=== PATIENT | female | born 1990 | race Caucasian/White ===

== ENCOUNTER 2018-08-05 15:58 | Outpatient (CLI) | payer OTHER | END 2018-08-05 17:20 | disposition home or self-care (01) | LOC: OBT 15:58 → L-D 15:59 → OBT 17:20 | DX: O26.892 Other specified pregnancy related conditions, second trimester (principal); R55 Syncope and collapse; Z3A.21 21 weeks gestation of pregnancy | CPT/HCPCS: 76818 ==

== ENCOUNTER 2018-08-05 17:29 | Emergency (ER) | payer SELFPAY, OTHER | END 2018-08-05 20:05 | disposition left against medical advice (07) | LOC: FTE 17:29 | DX: Z53.21 Procedure and treatment not carried out due to patient leaving prior to being seen by health care provider (principal) ==

== ENCOUNTER 2018-12-09 00:14 | Outpatient (CLI) | payer OTHER | END 2018-12-09 02:06 | disposition home or self-care (01) | LOC: OBT 00:14 → L-D 00:15 → OBT 02:06 | DX: O62.9 Abnormality of forces of labor, unspecified (principal); Z3A.38 38 weeks gestation of pregnancy | CPT/HCPCS: 76818 ==

== ENCOUNTER 2018-12-13 17:48 | Inpatient (IN) | payer OTHER ==
[2018-12-13] MEDS ORDERED: IBUPROFEN 600 MG TAB PO (18:30)
[2018-12-13] MEDS ORDERED: MISOPROSTOL 200 MCG TAB PR (18:30)
[2018-12-13] MEDS ORDERED: CARBOPROST 250 MCG INJ IM (18:30)
[2018-12-13] MEDS ORDERED: BUTORPHANOL 2 MG INJ IV (18:30)
[2018-12-13] MEDS ORDERED: LIDOCAINE 1% (MPF) 30 ML INJ INJ (18:30)
[2018-12-13] MEDS ORDERED: METHYLERGONOVINE 0.2 MG INJ IM (18:30)
[2018-12-13] MEDS ORDERED: OXYTOCIN 30 UNITS/LR 500 ML IV (18:30)
[2018-12-13] MEDS: LACTATED RINGER'S 1,000 ML IV (20:44)
[2018-12-13 21:03] LABS: ADD MAN DIFF? NO
[2018-12-13 21:07] LABS: WHITE BLOOD COUNT 7.4 10^3/ul (4.8-10.8)
[2018-12-13 21:07] LABS: BASOPHILS % 0.4 % (0.0-2.0); EOSINOPHILS # 0.1 10^3/ul (0.0-0.5); EOSINOPHILS % 1.8 % (0.0-7.0); HEMOGLOBIN 12.7 g/dl (12.0-16.0); LYMPHOCYTES # 2.5 10^3/ul (0.8-2.9); LYMPHOCYTES % 33.2 % (15.0-51.0); MEAN CORPUSCULAR HEMOGLOBIN 27.3 pg (29.0-33.0); MEAN CORPUSCULAR HGB CONC 33.4 g/dl (32.0-37.0); MEAN CORPUSCULAR VOLUME 81.7 fl (82.0-101.0); MONOCYTE # 0.6 10^3/ul (0.3-0.9); MONOCYTES % 8.4 % (0.0-11.0); NEUTROPHIL # 4.1 10^3/ul (1.6-7.5); NEUTROPHILS % 55.9 % (39.0-77.0); PLATELET COUNT 266 10^3/UL (140-415); RED BLOOD COUNT 4.65 10^6/ul (4.20-5.40); RED CELL DISTRIBUTION WIDTH 15.3 % (11.5-14.5)
[2018-12-13] MEDS: AMPICILLIN 2 GM/NS (PMX) 100 ML IV (21:07)
[2018-12-13 21:28] LABS: INR 0.85; PARTIAL THROMBOPLASTIN TIME 30.3 Sec (23.0-35.0); PROTIME 11.7 Sec (11.9-14.9); PT RATIO 0.9
[2018-12-13 22:02] LABS: HEPATITIS B SURFACE ANTIGEN NEGATIVE (NEGATIVE)
[2018-12-14] MEDS: OXYTOCIN 30 UNITS/LR 500 ML IV ×5 (00:06→14:01)
[2018-12-14] MEDS: AMPICILLIN 1 GM/NS (PMX) 50 ML IV ×4 (01:21→10:30)
[2018-12-14] MEDS: LACTATED RINGER'S 1,000 ML IV ×2 (05:06→10:24)
[2018-12-14] MEDS: OXYCODONE/ASPIRIN (4.88/325) TAB PO (09:52)
[2018-12-14] MEDS: LACTATED RINGER'S 1,000 ML IV* ×2 (10:53→22:52)
[2018-12-14] MEDS ORDERED: ACETAMINOPHEN 325 MG TAB PO (11:00)
[2018-12-14] MEDS ORDERED: OXYTOCIN 30 UNITS/LR 500 ML IV (11:00)
[2018-12-14] MEDS ORDERED: HYDROCODONE/APAP (5/325) TAB PO (11:00)
[2018-12-14] MEDS ORDERED: MAGNESIUM HYDROXIDE 30ML CUP PO (11:00)
[2018-12-14] MEDS ORDERED: CARBOPROST 250 MCG INJ IM (11:00)
[2018-12-14] MEDS ORDERED: METHYLERGONOVINE 0.2 MG INJ IM (11:00)
[2018-12-14] MEDS ORDERED: ZOLPIDEM 5 MG TAB PO (11:00)
[2018-12-14] MEDS ORDERED: MISOPROSTOL 200 MCG TAB PR (11:00)
[2018-12-14] MEDS ORDERED: DIPHENHYDRAMINE 25 MG CAP PO (11:00)
[2018-12-14] MEDS: IBUPROFEN 800 MG TAB PO ×3 (12:29→23:36)
[2018-12-14] MEDS: WITCH HAZEL/GLYCERIN PAD PR (12:30)
[2018-12-14] MEDS: BENZOCAINE 20% 56 ML SPRAY TOP (12:30)
[2018-12-14] MEDS: LANOLIN HPA 1 PKT TOP (12:30)
[2018-12-14 15:06] LABS: RAPID PLASMA REAGIN NONREACTIVE (NR)
[2018-12-14] MEDS: SENNA/DOCUSATE NA (8.6MG/50MG) TAB PO (23:36)
[2018-12-15] MEDS: LACTATED RINGER'S 1,000 ML IV* (03:57)
[2018-12-15] MEDS: IBUPROFEN 800 MG TAB PO ×2 (05:58→11:51)
[2018-12-15 08:15] LABS: ADD MAN DIFF? NO
[2018-12-15 08:20] LABS: BASOPHILS % 0.4 % (0.0-2.0); EOSINOPHILS # 0.3 10^3/ul (0.0-0.5); EOSINOPHILS % 2.8 % (0.0-7.0); HEMATOCRIT 32.7 % (37.0-47.0); HEMOGLOBIN 10.9 g/dl (12.0-16.0); LYMPHOCYTES % 33.6 % (15.0-51.0); MEAN CORPUSCULAR HEMOGLOBIN 27.2 pg (29.0-33.0); MEAN CORPUSCULAR HGB CONC 33.3 g/dl (32.0-37.0); MEAN CORPUSCULAR VOLUME 81.5 fl (82.0-101.0); MEAN PLATELET VOLUME 11.3 fl (7.4-10.4); MONOCYTE # 0.6 10^3/ul (0.3-0.9); MONOCYTES % 6.3 % (0.0-11.0); NEUTROPHIL # 5.1 10^3/ul (1.6-7.5); NEUTROPHILS % 56.7 % (39.0-77.0); PLATELET COUNT 235 10^3/UL (140-415); RED BLOOD COUNT 4.01 10^6/ul (4.20-5.40); RED CELL DISTRIBUTION WIDTH 15.4 % (11.5-14.5)
[2018-12-15] MEDS: SENNA/DOCUSATE NA (8.6MG/50MG) TAB PO (09:20)
[2018-12-15] MEDS: MEASLES,MUMPS,RUBELLA VACCINE INJ SC* (13:52)
[2018-12-15] MEDS: VARICELLA VACCINE LIVE/PF 1,350 UNIT/0.5 ML ML SC* (13:53)
[2018-12-15] MEDS: DIPHTH/TET/ACEL PERTUSS (ADULT) 0.5 ML VIAL IM* (14:10)
== END 2018-12-15 15:00 | disposition home or self-care (01) | DRG 807 ==
LOC: OBT 17:48 → L-D 17:51 → PP1 12-14 10:36
PROVIDERS: Obstetrics & Gynecology
PROC: 10E0XZZ Delivery of Products of Conception, External Approach (ICD-10-PCS; principal; 2018-12-14)
PROC: 3E033VJ Introduction of Other Hormone into Peripheral Vein, Percutaneous Approach (ICD-10-PCS; 2018-12-14)
DX: O26.893 Other specified pregnancy related conditions, third trimester (principal); Z37.0 Single live birth; Z3A.39 39 weeks gestation of pregnancy; R03.0 Elevated blood-pressure reading, without diagnosis of hypertension
CPT/HCPCS: 85025; 85610; 85730; 86592; 86850; 86900; 86901; 87340; 90715